=== PATIENT | female | born 1945 | race Caucasian/White ===

== ENCOUNTER → 2016-09-18 | Outpatient (CLI) | payer MEDICARE, BC ==
[~2016-09-18] MED LIST: 00186-0370-20 IH; 00186-0372-20 IH; AMOXICILLIN 8751 TAB PO; ASPIRIN 81M81 MG/TA2 PO; CLARITIN 1010 MG/TAB PO; PRILOSEC 20MG20 MG PO; PRINIVIL20 MG PO; TENORMIN 2525 MG/TAB PO; TENORMIN 5050 MG/TAB PO; VENTOLIN0.09 MG IH; XANAX .25M0.25 MG/TA PO; ZOCOR 10MG10 MG PO; ZOCOR5 MG PO
== END ==
LOC: MC.RAD 08:34
DX: Z12.31 Encounter for screening mammogram for malignant neoplasm of breast (principal)

== ENCOUNTER → 2017-10-09 | Outpatient (CLI) | payer MEDICARE, BC | LOC: MC.RAD 08:55 | DX: Z12.31 Encounter for screening mammogram for malignant neoplasm of breast (principal) ==

== ENCOUNTER → 2017-11-09 | Outpatient (CLI) | payer MEDICARE, BC | LOC: COL.LAB 09:52 | DX: R50.9 Fever, unspecified (principal); J47.9 Bronchiectasis, uncomplicated ==

== ENCOUNTER → 2017-11-16 | Outpatient (CLI) | payer MEDICARE, BC | LOC: ZCOL.LAB 11:04 | DX: J47.9 Bronchiectasis, uncomplicated (principal) ==

== ENCOUNTER → 2018-12-07 | Outpatient (CLI) | payer MEDICARE, BC | LOC: MC.RAD 14:25 | DX: Z12.31 Encounter for screening mammogram for malignant neoplasm of breast (principal) ==

== ENCOUNTER → 2019-11-25 | Outpatient (CLI) | payer MEDICARE, BC | LOC: COL.RAD 13:30 | DX: Z53.9 Procedure and treatment not carried out, unspecified reason (principal) ==

== ENCOUNTER → 2020-02-10 | Outpatient (CLI) | payer MEDICARE, BC | LOC: MC.RAD 09:30 | DX: Z12.31 Encounter for screening mammogram for malignant neoplasm of breast (principal) ==

== ENCOUNTER → 2021-02-18 | Outpatient (CLI) | payer MEDICARE, BC | LOC: COL.RAD 09:12 | DX: Z12.2 Encounter for screening for malignant neoplasm of respiratory organs (principal); Z87.891 Personal history of nicotine dependence; J43.9 Emphysema, unspecified ==

== ENCOUNTER → 2021-03-25 | Outpatient (CLI) | payer MEDICARE, BC | LOC: MC.RAD 08:57 | DX: Z12.31 Encounter for screening mammogram for malignant neoplasm of breast (principal) ==

== ENCOUNTER 2021-05-05 09:32 | Emergency (ER) | payer MEDICARE, BC ==
[~2021-05-05] VITALS: Ht 170.2 cm; Wt 53.2 kg
[2021-05-05 09:41] VITALS: TEMP 97.9
[2021-05-05 11:13] VITALS: BP 107/71; PULSE 61
== END 2021-05-05 11:15 | disposition home or self-care (01) ==
LOC: COL.ER 09:32
DX: S96.911A Strain of unspecified muscle and tendon at ankle and foot level, right foot, initial encounter (principal); X50.1XXA Overexertion from prolonged static or awkward postures, initial encounter

== ENCOUNTER → 2022-04-04 | Outpatient (CLI) | payer MEDICARE, BC | LOC: MC.RAD 08:50 | DX: Z12.31 Encounter for screening mammogram for malignant neoplasm of breast (principal) ==

== ENCOUNTER 2023-03-30 10:34 | Outpatient (CLI) | payer MEDICARE ==
[~2023-03-30] VITALS: Ht 170.2 cm; Wt 51.8 kg
[2023-03-30] MEDS ORDERED: CALCIUM 600600 MG PO (11:12)
[2023-03-30] MEDS ORDERED: MASON NATURAL2000 IU PO (11:13)
[2023-03-30] MEDS ORDERED: LIPITOR20 MG PO (11:15)
[2023-03-30] MEDS ORDERED: AMOXICILLIN 50500 MG PO (11:15)
[2023-03-30] MEDS ORDERED: VERAPAMIL 440 MG/TAB PO (11:16)
[2023-03-30 11:21] VITALS: BP 125/71; PULSE 67; TEMP 97.7
== END 2023-03-30 11:26 | disposition home or self-care (01) ==
LOC: EUO 10:34
DX: M81.0 Age-related osteoporosis without current pathological fracture (principal)
CPT/HCPCS: J0897

== ENCOUNTER → 2023-05-08 | Outpatient (CLI) | payer MEDICARE ==
[~2023-05-08] MED LIST changes: +AMOXICILLIN 50500 MG PO; +CALCIUM 600600 MG PO; +LIPITOR20 MG PO; +MASON NATURAL2000 IU PO; +VERAPAMIL 440 MG/TAB PO
== END ==
LOC: MC.RAD 09:33
DX: R92.8 Other abnormal and inconclusive findings on diagnostic imaging of breast (principal)